=== PATIENT | female | born 1995 | race Caucasian/White ===

== ENCOUNTER 2017-06-10 14:18 | Emergency (ER) | payer MEDICAID ==
[~2017-06-10] VITALS: Ht 167.6 cm; Wt 80.0 kg
[2017-06-10 15:14] VITALS: BP 131/76
[2017-06-10] MEDS ORDERED: IBUPROFEN 600MG TABLET PO ONE (18:45)
== END 2017-06-10 19:35 | disposition home or self-care (01) ==
LOC: ER 16:43
DX: S82.64XA Nondisplaced fracture of lateral malleolus of right fibula, initial encounter for closed fracture (principal); F17.210 Nicotine dependence, cigarettes, uncomplicated; X50.1XXA Overexertion from prolonged static or awkward postures, initial encounter; Y93.89 Activity, other specified; Y92.480 Sidewalk as the place of occurrence of the external cause
CPT/HCPCS: 29515; 73610; 99284